=== PATIENT | female | born 1985 | race Caucasian/White ===

== ENCOUNTER 2023-09-03 15:42 | Outpatient (CLI) | payer BC ==
[~2023-09-03] VITALS: Ht 170.2 cm; Wt 79.4 kg
[2023-09-03] VITALS (7 sets, daily range): BP systolic 100–114; BP diastolic 56–74; PULSE 69–79
[~2023-09-03 15:42] MED LIST: ASPIRIN 81M81 MG/TA2 PO; FIBER GUMMIES CHEW; PRENATAL TABLET PO; PROMETRIUM200 M1 PO; VITAMINC250CH PO; ZINC PO
--- NOTE | 2023-09-03 15:45 | NUR ---
1545PT AMBULATORY TO UNIT WITH SPOUSE. PT COMFORTABLE IN BED. 1550THIS RN AT BEDSIDE TO PLACE TOCO AND EFM. EFM TRACING CAT I. PT VITAL SIGNS STABLE. 1555PT DENIES FEELING ANY CTX. PT DENIES LEAKING OF FLUID, AND PT DENIES VAGINAL BLEEDING. PT STATES SHE WAS SENT OVER FROM THE OFFICE FOR DECREASED FM AND NON-REACTIVE NST. PT STATES SHE LAID DOWN FOR ABOUT A HALF AN HOUR TO TRACK MOVEMENT BEFORE HEADING TO [facility].
[2023-09-03] MEDS ORDERED: PROBIOTIC BLEN1 EACH PO (16:09)
--- NOTE | 2023-09-03 18:00 | NUR ---
1800THIS RN AT BEDSIDE TO DISCUSS POC WITH PT. THIS RN REVIEWS DISCHARGE INSTRUCTIONS WITH PT. PT VERBALIZES UNDERSTANDING ABOUT DISCHARGE. 1808PT AMBULATORY WITH SPOUSE OFF UNIT. DESTINATION HOME.
== END 2023-09-03 18:08 | disposition home or self-care (01) ==
LOC: LDRO 15:42
DX: O36.8130 Decreased fetal movements, third trimester, not applicable or unspecified (principal); Z3A.30 30 weeks gestation of pregnancy

== ENCOUNTER 2023-10-25 05:16 | Inpatient (IN) | payer BC ==
[~2023-10-25] VITALS: Ht 170.2 cm; Wt 84.5 kg
[2023-10-25] VITALS (18 sets, daily range): BP systolic 88–119; BP diastolic 47–88; PULSE 46–79; TEMP 97.4–98.7
[~2023-10-25 05:16] MED LIST changes: +PROBIOTIC BLEN1 EACH PO; -PROMETRIUM200 M1 PO; +PROMETRIUM200 M1 VG
[2023-10-25] MEDS ORDERED: Ondansetron 4 MG/2 ML VIAL IV SCH (06:30)
[2023-10-25] MEDS ORDERED: LR 1,000 ML IV SCH ×2 (06:30)
--- NOTE | 2023-10-25 06:30 | NUR ---
THIS RN ASSUMES CARE OF PT. PT DENIES BEING ABLE TO FEEL ANY CTX RECENTLY, REPORTS POSITIVE MOVEMENT AND DENIES LOF/VB. FULLY ALERT AND ORIENTED. ALL CONSENTS SIGNED. SCHEDULED FOR PRIMARY CSECTION THIS AM DUE TO UTERINE FIBROIDS. ORIENTED TO ROOM AND PLAN OF CARE. LABS PENDING. LR BOLUS INFUSING PER ORDER. MATERNAL VITAL SIGNS STABLE. CATEGORY 1 EFM TRACING.
[2023-10-25 06:50] LABS: BASO # 0.1 K/mm3 (0.0-0.2); BASO % 0.9 % (0.0-2.0); EOS # 0.1 K/mm3 (0.0-0.7); EOS % 1.6 % (0.0-4.0); GRAN # 5.7 K/mm3 (1.4-6.5); GRAN % 67.5 % (42.2-75.2); HEMOGLOBIN 11.9 g/dl (12.5-16.0); LYMPH # 1.9 K/mm3 (1.2-3.4); LYMPH % 22.8 % (20.0-51.0); MEAN CELL VOLUME 100 fl (80.0-100.0); MEAN CORPUSCULAR HEMOGLOBIN 34 pg (27-31); MEAN CORPUSCULAR HGB CONC 34 g/dl (33.0-37.0); MEAN PLATELET VOLUME 10.1 fl (7.4-10.4); MONO # 0.6 K/mm3 (0.1-0.6); MONO % 6.7 % (1.7-9.3); PLATELET COUNT 179 K/mm3 (130-400); RED BLOOD COUNT 3.54 M/mm3 (4.10-5.30); REDCELL DISTRIBUTION WIDTH-CV 13.7 % (11.5-14.5)
[2023-10-25 06:54] LABS: HEMATOCRIT 35.4 % (37.0-47.0)
[2023-10-25] MEDS ORDERED: Oxytocin 10 UNITS/ML VIAL ONE (07:02)
[2023-10-25] MEDS ORDERED: dexAMETHasone 10 MG/ML VIAL ONE (07:02)
[2023-10-25] MEDS ORDERED: Ondansetron 4 MG/2 ML VIAL ONE (07:02)
[2023-10-25] MEDS ORDERED: Ketorolac 30 MG/ML VIAL ONE (07:02)
[2023-10-25] MEDS ORDERED: NS 10 ML IV ONE ×2 (07:02→07:15)
[2023-10-25] MEDS ORDERED: Phenylephrine 10 MG/ML VIAL ONE (07:05)
[2023-10-25] MEDS ORDERED: LR 1,000 ML IV ONE (07:53)
[2023-10-25] MEDS ORDERED: ePHEDrine 50 MG/ML VIAL ONE (07:57)
[2023-10-25] MEDS ORDERED: Ondansetron 4 MG/2 ML VIAL IV PRN (09:00)
[2023-10-25] MEDS ORDERED: LR 1,000 ML IV PRN (09:00)
[2023-10-25] MEDS ORDERED: Loratadine 10 MG TAB PO PRN (09:00)
[2023-10-25] MEDS ORDERED: Magnes Hydrox (MOM) 80 MG/ML 30 ML CUP PO PRN (09:00)
[2023-10-25] MEDS ORDERED: Naloxone 0.4 MG/ML VIAL IV PRN (09:00)
[2023-10-25] MEDS ORDERED: oxyCODONE/Acetaminophen 5-325 MG TAB PO PRN (09:00)
[2023-10-25] MEDS ORDERED: Measles/Mumps/Rubella Virus Vaccine Live w Diluent 0.5 ML VIAL SQ SCH (09:00)
--- NOTE | 2023-10-25 09:10 | NUR ---
PT TO PP ROOM FOLLOWING SUCCESFUL PRIMARY CSECTION AND DELIVERY OF VIABLE FEMALE INFANT PER . UTERINE FIBROIDS NOTED AT DELIVERY, UTERUS LARGE AND FIRM IN SIZE. LOCHIA SCANT, FUNDUS FIRM. MATERNAL VITAL SIGNS STABLE. PT FULLY A&O, DENIES PAIN. SKIN TO SKIN. WILL BEGIN CARES PER PROTOCOL.
[2023-10-25] MEDS ORDERED: Ibuprofen 800 MG TAB PO SCH (15:00)
[2023-10-25] MEDS ORDERED: Sennosides/Docusate 8.6-50 MG TAB PO SCH (17:00)
[2023-10-25] MEDS ORDERED: PERCOCET 325 MG1 TA2 PO (20:40)
[2023-10-25] MEDS ORDERED: IBU800 M1 PO (20:40)
[2023-10-25] MEDS ORDERED: traZODone 50 MG TAB PO PRN (21:00)
[2023-10-26 04:00] VITALS: BP 102/67; PULSE 70
--- NOTE | 2023-10-26 06:20 | NUR ---
THIS RN RECEIVES REPORT FROM KAVEH GALLEGO RESTING COMFORTABLY, VS STABLE, AND NOT REPORTING ANY PAIN CURRENTLY.
[2023-10-26 07:36] VITALS: BP 115/80; PULSE 80; TEMP 98.4
--- NOTE | 2023-10-26 09:38 | NUR ---
Initial visit attempt; Patient out of room, Making Line Worker left card offering Spiritual Care and Congratulations and God's blessings for the oftheir daughter.
[2023-10-26 16:00] VITALS: BP 111/72; PULSE 70; TEMP 98.2
[2023-10-26 21:30] VITALS: BP 124/83; PULSE 72; TEMP 97.9
[2023-10-27 07:14] VITALS: BP 117/74; PULSE 83; TEMP 98.2
[2023-10-27 16:00] VITALS: BP 106/66; PULSE 79; TEMP 98.7
--- NOTE | 2023-10-27 19:30 | NUR ---
attempting to pump x 15min: 0 from R breast, <1 from L breast. Breasts firm to touch. Warm wash cloth applied to L breast pumped additional 5 min with no additional return. Encouraged pt to shower and aim the hot water on her breasts while trying to express colostrum to relieve some of the tightness Pump after shower
[2023-10-27 20:30] VITALS: BP 120/68; PULSE 74; TEMP 98
--- NOTE | 2023-10-27 21:00 | NUR ---
Pt sitting on edge of bed, pumping, shoulders tense and shaking, crying. When asked, pt stated "I'm not getting anything in the pump, and she's losing weight" Emotional support and reassurances given. Pointed out that there was 3mls of colostrum from the L breast, more than earlier. Discussed new plan of care for night. Will give her meds @ 2230, she'll pump. baby will come to the nsy for the night. She'll pump again @ 0230 and we'll feed baby in the nsy so she can sleep. Baby will resume going to breast in the am. Pt and spouse agree. Pt seems reassured.
[2023-10-28 07:00] VITALS: BP 116/77; PULSE 79; TEMP 98.2
== END 2023-10-28 15:10 | disposition home or self-care (01) | DRG 788 ==
LOC: OB 05:16
PROVIDERS: ADMIT Student in an Organized Health Care Education/Training Program
PROC: 10D00Z1 Extraction of Products of Conception, Low, Open Approach (ICD-10-PCS; principal; 2023-10-25)
DX: O32.1XX0 Maternal care for breech presentation, not applicable or unspecified (principal); Z3A.38 38 weeks gestation of pregnancy; Z37.0 Single live birth; O34.13 Maternal care for benign tumor of corpus uteri, third trimester; D25.9 Leiomyoma of uterus, unspecified; O34.03 Maternal care for unspecified congenital malformation of uterus, third trimester; Z90.721 Acquired absence of ovaries, unilateral
CPT/HCPCS: J0665; J0690; J1100; J1885; J2371; J2405; J2590; J7120